=== PATIENT | male | born 1940 | race Two or more races ===

== ENCOUNTER 2016-11-20 02:56 | Emergency (ER) | payer OTHER, MEDICAID ==
[~2016-11-20] VITALS: Ht 170.2 cm; Wt 73.0 kg
[2016-11-20 03:07] VITALS: BP 101/44
== END 2016-11-20 04:31 | disposition left against medical advice (07) ==
LOC: ER 03:02
DX: Z53.21 Procedure and treatment not carried out due to patient leaving prior to being seen by health care provider (principal)